=== PATIENT | female | born 1990 ===

== ENCOUNTER → 2017-02-19 | Outpatient (CLI) | payer OTHER ==
--- NOTE | 2017-02-19 15:35 | DIAGNOSTIC IMAGING REPORT ---
MRI OF THE RIGHT KNEE WITHOUT CONTRAST CLINICAL HISTORY: Right knee pain following injury. COMPARISON STUDY: None. TECHNIQUE: Utilizing a 1.5 Saira magnet and dedicated coil, multiplanar, multiecho imaging of the right knee was performed without intravenous or intraarticular contrast. FINDINGS: Alignment of the right knee is anatomic. There is no joint effusion. No marrow replacement is present. There is mild marrow edema within the lateral femoral condyle. No fracture is identified. There is mild subchondral signal abnormality within the lateral femoral condyle. The menisci are intact. There is increased signal within the popliteus at the level of the femoral condyle. The cruciate and collateral limits are intact. No significant chondrosis is noted. There is mild chondrosis of the medial patellar cartilage. IMPRESSION: 1. Intact cruciate and collateral ligaments. 2. Increased signal within the popliteus tendon at the level the femoral condyle which raises the possibility of a partial tear of the popliteus. 3. Mild marrow edema within the lateral femoral condyle. No fracture. Electronically signed by: Marty Pastrana M.D. 02/19/2017 3:33 PM Dictated Date/Time: 02/19/2017 11:40 AM
== END ==
LOC: C.MRIBC 10:53
PROVIDERS: ATTEND Orthopaedic Surgery
DX: M25.562 Pain in left knee (principal)